=== PATIENT | male | born 1985 | race Two or more races ===

== ENCOUNTER 2019-04-07 12:10 | Emergency (ER) | payer OTHER ==
[~2019-04-07] VITALS: Ht 182.9 cm; Wt 133.8 kg
[2019-04-07] MEDS ORDERED: DOXYCYCLINE HY100 MG PO (13:21)
== END 2019-04-07 14:02 | disposition home or self-care (01) ==
LOC: ER 12:10
DX: Z20.89 Contact with and (suspected) exposure to other communicable diseases (principal)

== ENCOUNTER 2019-07-29 17:50 | Emergency (ER) | payer OTHER ==
[~2019-07-29] VITALS: Ht 182.9 cm; Wt 156.0 kg
[~2019-07-29 17:50] MED LIST: DOXYCYCLINE HY100 MG PO
== END 2019-07-29 21:36 | disposition home or self-care (01) ==
LOC: ER 17:50
DX: J02.8 Acute pharyngitis due to other specified organisms (principal)